=== PATIENT | female | born 1990 | race Caucasian/White ===

== ENCOUNTER 2017-12-30 06:25 | Inpatient (IN) | payer BC ==
[~2017-12-30 06:25] MED LIST: Bicitra 30 ML UDCUP PO SCH; CEFAZOLIN/Water 2 GM/20 ML SYRINGE SLOW IVP SCH; Ondansetron HCl/PF 4 MG/2 ML Vial IVP PRN; Promethazine HCl 25 MG/ML VIAL IM PRN
[2017-12-30] MEDS: Lactated Ringer's 1,000 ML IV SCH (10:51)
[2017-12-30 11:11] LABS: Hemoglobin 13.9 g/dL (12.0-16.0); Mean Corpuscular Hemoglobin 31.9 pg (27.0-31.0); Mean Platelet Volume 7.3 fL (7.4-10.4); Platelet Count 220 thou/uL (130-400); RBC Distribution Width 11.8 % (11.5-14.5); Red Blood Cell (RBC) Count 4.35 mill/uL (4.20-5.40); White Blood Cell (WBC) Count 7.9 thou/uL (4.8-10.8)
[2017-12-30 11:23] LABS: ALT (SGPT) 11 U/L (8-55); AST (SGOT) 13 U/L (5-34); Albumin 3.3 g/dL (3.5-5.0); Alkaline Phosphatase 184 U/L (40-150); Anion Gap 14 mmol/L (10-20); BUN (Urea Nitrogen) 7 mg/dL (7.0-18.7); Bilirubin, Total 0.4 mg/dL (0.2-1.2); Calc. Creatinine Clearance 0 mL/min (70-130); Calcium 8.6 mg/dL (7.8-10.44); Carbon Dioxide 18 mmol/L (22-29); Chloride 109 mmol/L (98-107); Estimated GFR-MDRD Greater than 90; Globulin 2.8 g/dL (2.4-3.5); Glucose 83 mg/dL (70-105); Potassium 4.1 mmol/L (3.5-5.1); Protein, Total 6.1 g/dL (6.0-8.3); Sodium 137 mmol/L (136-145)
[2017-12-30] MEDS ORDERED: Ondansetron HCl/PF 4 MG/2 ML Vial ONE ×2 (11:25→11:29)
[2017-12-30] MEDS ORDERED: Bupivacaine 0.75% W/DEXTROSE 8.25% 2 ML AMP ONE (11:28)
[2017-12-30] MEDS ORDERED: Oxytocin 10 UNITS/ML VIAL ONE (11:29)
[2017-12-30] MEDS ORDERED: Morphine PF 1 MG/ML SYR ONE (11:29)
[2017-12-30] MEDS ORDERED: ePHEDrine/0.9% NaCl/PF SYRINGE 50 mg/10 ml ONE (11:29)
[2017-12-30 11:41] LABS: HBSAg Index 0.15 S/CO (0-0.99); Hep B Surf Ag Non-Reactive S/CO (NonReactive); Syphilis Antibody Nonreactive (Nonreactive); Syphilis Antibody Index 0.05 S/CO (<1.00 Non-Reactive)
[2017-12-30] MEDS ORDERED: Lidocaine 1% (PF) 30 ML VIAL ONE (12:06)
[2017-12-30] MEDS ORDERED: Lanolin Ointment 7 GM TUBE TOP PRN (13:01)
[2017-12-30] MEDS ORDERED: Adacel (T-DAP) 0.5 ML VIAL IM ONE (13:01)
[2017-12-30] MEDS ORDERED: traMADol HCl 50 MG TAB PO PRN (13:03)
--- NOTE | 2017-12-30 13:05 | PDOC.OPDEL ---
OB Operative/Delivery Note Delivery Dr/Surgeon: Alberto Assist: Kia Pre-Delivery Diagnosis: scheduled section (mild PIH A1GDM Prior c/s at 26 weeks for preeclampsia) Procedure/Post Delivery Dx: repeat low transverse CS Weeks gestation: 37 Anesthesia: spinal - Findings A Sex: female Weight: 8 lb - 1 min: 4 - 5 min: 7 - Additional Findings/Plan Placenta delivered: manual removal findings: low transverse hysterotomy without extension, normal uterus, normal tubes, normal ovaries Estimated blood loss: 600ml Post delivery plan: routine recovery
[2017-12-30] MEDS ORDERED: Misoprostol 200 MCG TAB PR SCH (13:15)
[2017-12-30] MEDS ORDERED: Naloxone HCl 0.4 mg/ml Vial IV PRN (13:24)
[2017-12-30] MEDS ORDERED: Ondansetron HCl/PF 4 MG/2 ML Vial IVP PRN ×2 (13:24→13:25)
[2017-12-30] MEDS ORDERED: diphenhydrAMINE 50 MG/ML VIAL IVP PRN (13:24)
[2017-12-30] MEDS ORDERED: Ketorolac Tromethamine 30 MG/ML VIAL IVP PRN (13:24)
[2017-12-30] MEDS ORDERED: Eucerin (Mineral Oil/Petrolatum,White) 30 gm Jar TOP PRN (13:24)
[2017-12-30] MEDS ORDERED: Promethazine HCl 25 MG/ML VIAL IM PRN (13:24)
[2017-12-30] MEDS ORDERED: Naloxone HCl 0.4 mg/ml Vial IVP PRN ×2 (13:24)
[2017-12-30] MEDS ORDERED: Promethazine HCl 25 MG SUPP PR PRN (13:24)
[2017-12-30] MEDS ORDERED: Meperidine HCl/PF 25 MG/ML VIAL SLOW IVP PRN (13:25)
[2017-12-30] MEDS ORDERED: HYDROmorphone 2 MG/ML VIAL SLOW IVP PRN (13:25)
[2017-12-30] MEDS ORDERED: Communication Order-Pharmacy FS SCH (13:30)
[2017-12-30] MEDS ORDERED: Ketorolac Tromethamine 30 MG/ML VIAL IVP SCH (13:30)
[2017-12-30] MEDS ORDERED: diphenhydrAMINE 50 MG/ML VIAL ONE (13:54)
--- NOTE | 2017-12-30 14:29 | ADD-OP ---
ADDENDUM DATE OF PROCEDURE: 12/30/2017 I was present and scrubbed to assist the uncomplicated repeat with Dr. Sondra Dominguez. Ple ase see her note for full details.
[2017-12-30 15:51] VITALS: BMI 36.0
[2017-12-30] MEDS: Ibuprofen 800 MG TAB PO SCH ×2 (16:03→21:04)
--- NOTE | 2017-12-30 20:36 | OP ---
DATE OF PROCEDURE: 12/30/2017 PREOPERATIVE DIAGNOSES: 1. A 27-year-old white female, G2, P1, prior section for history of severe preeclampsia at 26 weeks. 2. Current , A1 gestational diabetic. 3. Current , mild gestational hypertension. POSTOPERATIVE DIAGNOSES: 1. A 27-year-old white female, G2, P1, prior section for history of severe preeclampsia at 26 weeks. 2. Current , A1 gestational diabetic. 3. Current , mild gestational hypertension. PROCEDURE: Repeat low transverse section without extension. SURGEON: Sondra Dominguez M.D. TANKER SERVICEMAN: Fiona Adam M.D. ANESTHESIA: Spinal block. ESTIMATED BLOOD LOSS: 700 mL COMPLICATIONS: None. COUNTS: Correct x2. ANTIBIOTICS: Two grams Ancef road production general manager to OR. FINDINGS: 1. Vigorous female infant, vertex presentation, clear amniotic fluid. Apgars were 4, 7 and 9 at 1, 5, and 10 minutes respectively, 8 pounds 0 ounce of weight. 2. Normal appearing fallopian tubes, uterus, and ovaries. 3. Clear urine present in Linda catheter. DISPOSITION: To the recovery room stable. DESCRIPTION OF OPERATIVE PROCEDURE: The patient previously received informed consent in regards to darwin franks. She was taken back to the operating room where she received a spinal block without complicat ions. She was placed in supine position, prepped and draped in usual sterile fashion. A Pfannenstie l incision was made to the previous scar site, carried down the fascia. Fascia was nicked in midline . Fascial incision extended bilaterally using curved Robertson scissors. The rectus fascia was then diss ected superiorly and inferiorly off the rectus muscle bellies. The peritoneal cavity was entered, th e incision was extended and an Estuardo O retractor was placed. A bladder flap was created in usual fa shion. A 2 cm hysterotomy incision was made in the lower uterine segment. This was extended via fin georgette fractionation. The amniotic bag was ruptured. The baby was delivered in the vertex presentation . Mouth and nares was bulb suctioned on the abdomen. The cord was doubly clamped and cut and handed to the call center consultant, Dr. Calixto, who was in attendance. The cord blood was collected in usual fas ion. Placenta was manually extracted. The uterus was curetted of any remaining placental fragments with dry laparotomy sponge. Hysterotomy incision was closed in running locking fashion with #1 Monoc ryl suture. Hemostasis was assured. Pelvis was irrigated and suctioned and again hemostasis confirm ed around the hysterotomy and sites. The Estuardo O retractor was removed. Again, the pelvis was insp ected. Hemostasis confirmed. The rectus muscle bellies were noted to be hemostatic prior to fascial closure. Fascia was closed in running continuous fashion with 0 PDS suture x2. Subcutaneous tissue was noted to be hemostatic prior to skin approximation with frederick. The surgery was terminated. N o anesthetic or surgical complications.
[2017-12-30] MEDS: Docusate Calcium (SURFAK) 240 MG CAP PO SCH (21:03)
[2017-12-30] MEDS: Ferrous Sulfate 325 MG TAB PO SCH (21:03)
[2017-12-31] MEDS: diphenhydrAMINE 25 MG CAP PO PRN ×2 (00:37→04:28)
[2017-12-31] MEDS ORDERED: Sodium Chloride 0.9% 10 ML ONE ×2 (04:33→04:40)
[2017-12-31 05:34] LABS: Hemoglobin 12.4 g/dL (12.0-16.0); Mean Corpuscular HGB CONC 34.7 g/dL (32.0-36.0); Mean Corpuscular Hemoglobin 32.3 pg (27.0-31.0); Mean Corpuscular Volume 92.9 fl (81.0-99.0); Mean Platelet Volume 6.8 fL (7.4-10.4); Platelet Count 174 thou/uL (130-400); RBC Distribution Width 11.8 % (11.5-14.5); Red Blood Cell (RBC) Count 3.85 mill/uL (4.20-5.40); White Blood Cell (WBC) Count 8.8 thou/uL (4.8-10.8)
[2017-12-31] MEDS: Ibuprofen 800 MG TAB PO SCH ×3 (07:17→21:10)
--- NOTE | 2017-12-31 08:05 | PDOC.PP ---
Post Progress Note Post Day #: 1 PO intake tolerated: yes Flatus: yes Ambulation: yes Vital Signs (12 hours) Temp Pulse Resp BP BP 12/31/17 07:50 98.2 F 85 20 101/58 L 12/31/17 04:00 98.0 F 85 20 114/68 12/31/17 02:01 20 12/31/17 00:15 98.0 F 89 20 107/61 12/30/17 22:00 18 Weight Weight 197 lb - Physical Examination General: NAD Cardiovascular: no m/r/g, RRR Respiratory: clear to auscultation bilaterally, non-labored breathing Abdominal: + bowel sounds, lochia, no distention, appropriately TTP Result Diagrams: 12/31/17 05:13 12/30/17 10:51 Additional Labs: Post Labs Blood Type A POSITIVE 12/30/17 10:51 Hep Bs Antigen Non-Reactive S/CO (NonReactive) 12/30/17 10:51 - Assessment/Plan post op day 1-repeat c/s for mild pih. blood pressures normotensive. hemodynamically stable. post care. possible d/c 4/5.
[2017-12-31] MEDS: Docusate Calcium (SURFAK) 240 MG CAP PO SCH ×2 (09:42→20:36)
[2017-12-31] MEDS: Prenatal Vitamin 1 TAB PO SCH (09:42)
[2017-12-31] MEDS: Ferrous Sulfate 325 MG TAB PO SCH ×2 (09:42→21:11)
[2017-12-31] MEDS: Lactated Ringer's 1,000 ML IV SCH ×2 (10:29→10:52)
[2017-12-31] MEDS: Simethicone Chewable 80 MG TAB PO PRN (20:36)
[2018-01-01] MEDS: traMADol HCl 50 MG TAB PO PRN ×2 (05:28→11:37)
[2018-01-01] MEDS: Ibuprofen 800 MG TAB PO SCH ×2 (05:29→13:02)
[2018-01-01] MEDS: Simethicone Chewable 80 MG TAB PO PRN (06:18)
[2018-01-01 07:59] VITALS: BP 123/75; TEMP 98
[2018-01-01] MEDS: Prenatal Vitamin 1 TAB PO SCH (09:48)
[2018-01-01] MEDS: Docusate Calcium (SURFAK) 240 MG CAP PO SCH (09:49)
[2018-01-01] MEDS: Ferrous Sulfate 325 MG TAB PO SCH (09:49)
--- NOTE | 2018-01-01 09:49 | PDOC.PP ---
Post Progress Note Post Day #: 2 PO intake tolerated: yes Flatus: yes Ambulation: yes Vital Signs (12 hours) Temp Pulse Resp BP BP 01/01/18 07:57 98.0 F 72 16 123/75 01/01/18 07:50 98.0 F 72 16 01/01/18 00:00 97.6 F 82 20 119/73 Weight Weight 197 lb - Physical Examination General: NAD Cardiovascular: no m/r/g, RRR Respiratory: clear to auscultation bilaterally, non-labored breathing Abdominal: + bowel sounds, lochia, no distention, appropriately TTP Result Diagrams: 12/31/17 05:13 12/30/17 10:51 Additional Labs: Post Labs Blood Type A POSITIVE 12/30/17 10:51 Hep Bs Antigen Non-Reactive S/CO (NonReactive) 12/30/17 10:51 - Assessment/Plan doing well post op day 2 d/c today. f/u staple removal post op day 7 and 6 weeks.
== END 2018-01-01 13:20 | disposition home or self-care (01) | DRG 766 ==
LOC: EDBD → L&D 10:04 → 3SW 15:12 → 3SE 01-01 12:52 → 3SW 01-01 12:57
PROVIDERS: ADMIT Obstetrics & Gynecology; ATTEND Obstetrics & Gynecology
PROC: 10D00Z1 Extraction of Products of Conception, Low, Open Approach (ICD-10-PCS; principal; 2017-12-30)
DX: O34.211 Maternal care for low transverse scar from previous cesarean delivery (principal); O24.420 Gestational diabetes mellitus in childbirth, diet controlled; N85.8 Other specified noninflammatory disorders of uterus; Z37.0 Single live birth; Z3A.37 37 weeks gestation of pregnancy; O13.4 Gestational [pregnancy-induced] hypertension without significant proteinuria, complicating childbirth
CPT/HCPCS: 36415; 51702; 80053; 81003; 85027; 86780; 86850; 86900; 86901; 87340; A4216; J1200; J1885; J2001; J2274; J2405; J2590; J3490